=== PATIENT | female | born 1965 | race Caucasian/White ===

== ENCOUNTER 2020-03-24 08:42 | Day surgery (SDC) | payer OTHER, SELFPAY ==
[2020-03-16 12:55] VITALS: BMI 38.7
--- NOTE | 2020-03-23 09:57 | HO.ANESPROP2 ---
HPI - Anesthesia Eval Consult details Narrative: 54yo F for Colonoscopy PMFSH Past Medical History Medical History Arthritis Asthma Back pain Depression Diabetes Elevated cholesterol GERD (gastroesophageal reflux disease) Heart murmur History of DVT of lower extremity History of Helicobacter pylori infection Hypertension Smoker Surgical History Surgical History History of appendectomy History of esophagogastroduodenoscopy (EGD) History of tubal ligation Hx of colonoscopy Social History Social History Smoking Status: Current every day smoker Packs Per Day: 0.5 Cigarettes Per Day: 10.0 Years Smoked: 10 Smoked in Last 30 Days: Yes Patient Interested in Nicotine Replacement: No Patient Given Instructions on How to Stop Smoking: Yes Date Education Initiated: 03/16/20 Use of substances other than those prescribed or required for medical reasons: No Advance Directives: No Advance Directives Information Provided: No Advance Directives on File: No Recently lost weight without trying: No Meds Allergies Allergy/AdvReac Type Severity Reaction Status Date / Time Penicillins [PENICILLINS] Allergy Intermediate RASH Unverified 03/16/20 12:18 Home Medications Medication Instructions Recorded Confirmed Type albuterol sulfate [ProAir HFA] 2 puff INHALATION Q4-6H PRN 03/16/20 03/16/20 History aspirin [Aspir-81] 81 mg PO DAILY 03/16/20 03/16/20 History lisinopril 20 mg PO DAILY 03/16/20 03/16/20 History omeprazole 20 mg PO BID 03/16/20 03/16/20 History senna 8.6 mg PO BEDTIME 03/16/20 03/16/20 History simvastatin 40 mg PO BEDTIME 03/16/20 03/16/20 History Exam Exam Date and Time: March 23, 2020 0957 Height,Weight and Vital Signs: Height 5 ft 1 in Weight 92.986 kg Assessment and Plan Assessment Anesthesia Assessment: Chart Reviewed
--- NOTE | 2020-03-24 08:01 | HO.ANESPROP2 ---
[facility] Past Medical History Medical History Arthritis Asthma Back pain Depression Diabetes Elevated cholesterol GERD (gastroesophageal reflux disease) Heart murmur History of DVT of lower extremity History of Helicobacter pylori infection Hypertension Smoker Surgical History Surgical History History of appendectomy History of esophagogastroduodenoscopy (EGD) History of tubal ligation Hx of colonoscopy Social History Social History Smoking Status: Current every day smoker Packs Per Day: 0.5 Cigarettes Per Day: 10.0 Years Smoked: 10 Smoked in Last 30 Days: Yes Patient Interested in Nicotine Replacement: No Patient Given Instructions on How to Stop Smoking: Yes Date Education Initiated: 03/16/20 Use of substances other than those prescribed or required for medical reasons: No Advance Directives: No Advance Directives Information Provided: No Advance Directives on File: No Recently lost weight without trying: No Meds Allergies Allergy/AdvReac Type Severity Reaction Status Date / Time Penicillins [PENICILLINS] Allergy Intermediate RASH Unverified 03/16/20 12:18 Home Medications Medication Instructions Recorded Confirmed Type albuterol sulfate [ProAir HFA] 2 puff INHALATION Q4-6H PRN 03/16/20 03/16/20 History aspirin [Aspir-81] 81 mg PO DAILY 03/16/20 03/16/20 History lisinopril 20 mg PO DAILY 03/16/20 03/16/20 History omeprazole 20 mg PO BID 03/16/20 03/16/20 History senna 8.6 mg PO BEDTIME 03/16/20 03/16/20 History simvastatin 40 mg PO BEDTIME 03/16/20 03/16/20 History Exam Exam Date and Time: March 24, 2020 0801 Height,Weight and Vital Signs: Height 5 ft 1 in Weight 92.986 kg Airway Mallampati Class: II TM Dist: >3cm Neck ROM: Full Loose/Missing/Broken Teeth: No Heart: RRR Lungs: CTA Assessment and Plan Assessment Anesthesia Assessment: Anesthesia Plan Discussed and Chart Reviewed Final Anesthetic Review NPO: Yes ASA Class: II
[2020-03-24 09:24] VITALS: BP 162/71; PULSE 101; RESP 20; TEMP 36.1; O2SAT 97
--- NOTE | 2020-03-24 09:28 | P.CONAN_ITS ---
ON LICENSE OF [facility] Past Medical History Medical History Arthritis Asthma Back pain Depression Diabetes Elevated cholesterol GERD (gastroesophageal reflux disease) Heart murmur History of DVT of lower extremity History of Helicobacter pylori infection Hypertension Smoker Surgical History Surgical History History of appendectomy History of esophagogastroduodenoscopy (EGD) History of tubal ligation Hx of colonoscopy Social History Social History Smoking Status: Current every day smoker Packs Per Day: 0.5 Cigarettes Per Day: 10.0 Years Smoked: 10 Smoked in Last 30 Days: Yes Patient Interested in Nicotine Replacement: No Patient Given Instructions on How to Stop Smoking: Yes Date Education Initiated: 03/16/20 Use of substances other than those prescribed or required for medical reasons: No Advance Directives: No Advance Directives Information Provided: No Advance Directives on File: No Recently lost weight without trying: No Meds Allergies Allergy/AdvReac Type Severity Reaction Status Date / Time Penicillins [PENICILLINS] Allergy Intermediate RASH Unverified 03/16/20 12:18 Home Medications Medication Instructions Recorded Confirmed Type albuterol sulfate [ProAir HFA] 2 puff INHALATION Q4-6H PRN 03/16/20 03/16/20 History aspirin [Aspir-81] 81 mg PO DAILY 03/16/20 03/16/20 History lisinopril 20 mg PO DAILY 03/16/20 03/16/20 History omeprazole 20 mg PO BID 03/16/20 03/16/20 History senna 8.6 mg PO BEDTIME 03/16/20 03/16/20 History simvastatin 40 mg PO BEDTIME 03/16/20 03/16/20 History Exam Exam Date and Time: March 24, 2020927 Height,Weight and Vital Signs: Height 5 ft 1 in Weight 92.986 kg Last Vital Signs Temp 97 F 03/24/20 09:24 Pulse 101 H 03/24/20 09:24 Resp 20 03/24/20 09:24 BP 162/71 H 03/24/20 09:24 Pulse Ox 97 03/24/20 09:24 Airway Mallampati Class: II TM Dist: >3cm Neck ROM: Full Loose/Missing/Broken Teeth: No Heart: RRR Lungs: CTA Assessment and Plan Assessment Anesthesia Assessment: Anesthesia Plan Discussed and Chart Reviewed Final Anesthetic Review NPO: Yes ASA Class: III Final Preanesthetic Review: Meds/Allgs Chart Reviewed, Consent Obtained/Reviewed and Anes Risks/Benef Reviewed Patient Risk: Intermediate Procedure Risk: Low Anesthetic Plan Anesthetic Plan: MAC: Disposition: Standard PACU
--- NOTE | 2020-03-24 09:28 | MHC.SHP ---
Pre-Procedural Eval Section B Chief Complaint: HX OF POLYPS Relevant Family History (Specify if Yes): No Relevant Social History: Tobacco Use Present Medications: see Short Stay Collaborative assessment Medical History: Significant History (asthma, htn, depression, dm, hlp, obesity) History of Previous Operations: Relevant previous surgery/procedure and date(s) (hysterectomy,appendectomy) Allergies: Allergies Allergy/AdvReac Type Severity Reaction Status Date / Time Penicillins [PENICILLINS] Allergy Intermediate RASH Unverified 03/16/20 12:18 Review of Systems Sugical H&P ROS: Negative: Constitution, Cardiovascular, Respiratory, Neurological, Psychiatric, Hem-Onc, Allergic/Immunologic, Gastrointestinal, Genitourinary, Musculoskeletal, Integumentary, Endocrine and Eyes/Ears/Nose/Throat Exam Surgical H&P Exam: Normal: HEENT, Normal: Heart, Normal: Lungs, Normal: Extremities, Normal: Abdomen, Normal: Skin and Normal: Neurological Plan Diagnosis/Plan: Unchanged Patient has been examined and remains a candidate for the planned procedure
--- NOTE | 2020-03-24 10:03 | PM.OP ---
Brief Operative Note Date of Service: 03/24/20 Pre-op diagnosis: colon screen Post-op diagnosis: same Procedure: see op note Surgeon: Maria Esther Valladares MD Anesthesia: MAC Estimated blood loss (mL): 0 Condition: stable Disposition: PACU
--- NOTE | 2020-03-24 10:04 | P.OP_ITS ---
Operative Note Operative Note Date of Service: 03/24/20 Narrative: Operative Information Procedure Description: Colonoscopy COLONOSCOPY Instrument: Olympus variable stiffness pediatric scope 190L Colonoscopy Monitoring: Vital signs and clinical assessment, continuous EKG monitoring, Pulse oximetry, Carbon Dioxide monitoring and blood pressure monitoring were done throughout the procedure. Colon withdrawal time was 15 minutes. Procedure: The patient was placed in the left lateral decubitis position and pre-procedure medications were administered. After a digital rectal examination of the ano-rectum, the video colonoscope was inserted into the rectum and advanced through the colon to the cecum/TI. The colonoscope was slowly withdrawn in a retrograde panoramic fashion and the colon mucosa was carefully examined including a retroflexed view of the rectum. Findings and interventions are described below. Procedure Difficulty: easy Findings: Terminal Ileum-normal Cecum:normal Ascending Colon: normal Transverse Colon -normal Descending Colon:normal Sigmoid Colon: normal Rectum: Retroflexion with small internal hemorrhoids, grade I Anorectum - normal Colon preparation: [place] Bowel Preparation Scale Right colon; 3 Transverse colon: 3 Left colon; 3 (0 = Unprepared colon segment with mucosa not seen due to solid stool that cannot be cleared. 1 = Portion of mucosa of the colon segment seen, but other areas of the colon segment not well seen due to staining, residual stool and/or opaque liquid. 2 = Minor amount of residual staining, small fragments of stool and/or opaque liquid, but mucosa of colon segment seen well. 3 = Entire mucosa of colon segment seen well with no residual staining, small fragments of stool or opaque liquid) Impression and Post Procedure Diagnosis: internal hemorrhoids Plan: High fiber diet leaflet Avoid straining at stool, epsom salts and sitz bath, anusol supps or cream prn Repeat Colonoscopy in 7-10 years or earlier if clinically indicated Above findings were reviewed with the patient and relevant handouts were provided if indicated.
[2020-03-24 10:10] VITALS: BP 116/62; PULSE 80; RESP 18; TEMP 37.2; O2SAT 98
[2020-03-24 10:25] VITALS: BP 117/69; PULSE 73; RESP 18; O2SAT 96
--- NOTE | 2020-03-24 11:30 | HO.POSTANES ---
Post Anesthesia Evaluation Post Anesthesia Evaluation Vital Signs: Vital Signs Temp Pulse Resp BP Pulse Ox 03/24/20 10:25 98.9 F 73 18 117/69 96 03/24/20 10:10 98.9 F 80 18 116/62 98 03/24/20 09:24 97 F 101 H 20 162/71 H 97 Anesthesia: Monitored Mental Status: Awake Pain Control: Satisfactory Nausea/Vomiting: None Hydration: Adequate Anesthesia-Related Issues: No Anes. Related Issues
== END 2020-03-24 11:30 | disposition home or self-care (01) ==
PROVIDERS: Visit Provider Internal Medicine Gastroenterology
PROC: 0DJD8ZZ Inspection of Lower Intestinal Tract, Via Natural or Artificial Opening Endoscopic (ICD-10-PCS; CPT 45378; principal; 2020-03-24 08:30)
DX: Z12.11 Encounter for screening for malignant neoplasm of colon (principal); K64.0 First degree hemorrhoids; Z86.010 Personal history of colon polyps; Z88.0 Allergy status to penicillin
CPT/HCPCS: 45378; J2405; J2765